=== PATIENT | male | born 1965 | race African-American/Black ===

== ENCOUNTER 2022-06-12 09:39 | Outpatient (CLI) | payer OTHER, SELFPAY ==
[2022-06-12 12:22] LABS: Chloride* 108 mmol/L (96-114)
[2022-06-12 12:23] LABS: Potassium* 4.8 mmol/L (3.6-5.1); Sodium* 141 mmol/L (135-149)
[2022-06-12 12:25] LABS: Alkaline Phosphatase* 89 U/L (40-150); Bilirubin Total* 0.4 mg/dL (0.1-1.5); Blood Urea Nitrogen* 18 mg/dL (7-30); Carbon Dioxide* 28 mmol/L (20-32); Cholesterol* 219 mg/dL (90-199); Creatinine* 1.1 mg/dL (0.5-1.5); Estimated Glomerular Filt Rate 78 ml/min; Total Protein* 7.5 g/dL (6.0-8.3)
[2022-06-12 12:26] LABS: Alanine Aminotransferase* 37 U/L (4-50); Calcium* 9.2 mg/dL (8.4-10.6); Glucose* 113 mg/dL (60-115); HDL Cholesterol* 59 mg/dL (>=40); LDL Cholesterol Calculated 140 mg/dL (<100); Triglycerides* 102 mg/dL (40-149)
[2022-06-12 12:43] LABS: Aspartate Amino Transferase* 38 U/L (12-35)
[2022-06-12 12:56] LABS: PSA Screen* 0.46 ng/mL (0.10-4.00)
== END 2022-06-12 09:40 | disposition home or self-care (01) ==
PROVIDERS: PCP Family Medicine; Visit Provider Family Medicine
DX: Z00.00 Encounter for general adult medical examination without abnormal findings (principal); R03.0 Elevated blood-pressure reading, without diagnosis of hypertension; Z12.5 Encounter for screening for malignant neoplasm of prostate; Z13.6 Encounter for screening for cardiovascular disorders
CPT/HCPCS: 80053; 80061; 84153

== ENCOUNTER 2022-06-28 10:22 | Outpatient (CLI) | payer OTHER, SELFPAY ==
--- NOTE | 2022-06-28 10:15 | CRLHL7_ITS ---
For Patients: As a result of the Century Cures Act, medical imaging exams and procedure reports are released immediately into your electronic medical record. You may view this report before your referring provider. If you have questions, please contact your health care provider. Indication: LIPOMA, R/O DEEP CONNECTION Technique: Grayscale and color Doppler ultrasound of the posterior midline neck soft tissues performed. Comparison: None Findings: There is a circumscribed area of isoechoic echotexture within the posterior neck midline subcutaneous fat measuring 4.3 x 2.2 x 5.5 cm. No distal acoustic shadowing or abnormal vascularity. This appears superficial to the muscular layer. Impression: Subcutaneous lipoma measuring 4.3 x 2.2 x 5.5 cm located superficial to the muscles. Dictated by Trevor Lujan MD @ 06/28/2022 12:20:57 PM (Electronically Signed)
== END 2022-06-28 10:23 | disposition home or self-care (01) ==
PROVIDERS: PCP Family Medicine; Visit Provider Surgery
DX: R22.1 Localized swelling, mass and lump, neck (principal); D17.0 Benign lipomatous neoplasm of skin and subcutaneous tissue of head, face and neck
CPT/HCPCS: 76536

== ENCOUNTER 2022-07-18 06:40 | Day surgery (SDC) | payer OTHER, SELFPAY ==
[2022-07-18] VITALS (14 sets, daily range): BP systolic 110–175; BP diastolic 49–87; PULSE 57–75; RESP 16–18; TEMP 36.1–36.6; O2SAT 93–100; BMI 30.4
[2022-07-18] MEDS: SODIUM CHLORIDE 0.9 % (FLUSH) 10 ML SYRINGE IVF (06:50)
[2022-07-18] MEDS: LACTATED RINGERS 1000 ML 1,000 ML 100 ML IV (06:50)
--- NOTE | 2022-07-18 07:04 | SUR.PREOP ---
Patient provided home covid negative results to RN.
[2022-07-18] MEDS: CEFAZOLIN 2 GM INJ IVP (08:15)
--- NOTE | 2022-07-18 08:46 | W.ANESCHARGE ---
Anesthesia Charges Start Date/Time Anesthesia Start Date: 07/18/22 Anesthesia Start Time: 08:01 Stop Date/Time Anesthesia Stop Date: 07/18/22 Anesthesia Stop Time: 09:43
[2022-07-18] MEDS: BUPIVACAINE 0.25% 30 ML INJECTION (09:07)
--- NOTE | 2022-07-18 09:15 | PM.GSPRC ---
Operative Note Date of procedure: 07/18/22 Pre-op diagnosis: 1. Enlarging recurrent posterior neck mass Post-op diagnosis: Same Type of Procedure: 1. Excision of posterior neck mass. Indications: 56-year-old male was seen in clinic for evaluation of an enlarging posterior neck mass. Patient states that he initially noticed this mass 5 years ago. It was initially smaller and he underwent excision of the mass at the outside hospital. He states that the incision was made but he was not sure what was done. His mass has remained and has been growing in size. It has never gotten infected. On clinical exam in the posterior mid lower neck there was a horizontally oriented mass that was measuring approximately 6 x 4 cm. It was soft to palpation but had limited mobility. There was also vertically oriented surgical scar from patient's previous procedure. Patient underwent an ultrasound that showed a subcutaneous uniform mass measuring 4.3 x 5.5 cm that was thought to be a lipoma. Given patient's clinical history and his physical exam, excision of the posterior neck mass was recommended. The procedure was discussed in detail. The risks associated procedure including infection, bleeding, and mass recurrence were all discussed with the patient, and he agreed to proceed. Procedure Description: After discussing the risks and benefits of the procedure, the patient signed informed consent.? The operative site was marked and the patient was brought to the operating room. Patient was intubated by anesthesia. Patient was then placed prone on the operating table with all pressure points padded. The operative site was then prepped and draped in the usual sterile fashion.? A time-out was then performed. A horizontal elliptical skin incision was made with a scalpel. Dermis was divided with cautery. The dermis was very thick especially at the site of the previously well-healed scar. Subcutaneous tissues were divided with cautery circumferentially. A moderately firm mass was dissected circumferentially from subcutaneous fat. The borders of the mass were not easy to define. The mass was tightly adherent to the muscle fascia. It was shaved off of the muscle fascia with cautery. The mass was then removed. The mass was measuring 9 x 6 cm. It was sent to pathology. Hemostasis was achieved with cautery. Muscle fascia was reapproximated with interrupted Vicryl sutures. A 10 [place] drain was placed through a separate stab incision in the skin on the right side. The drain was placed into the incision cavity. The drain was secured in place with silk suture. Local anesthetic was injected at the surgical site. The incision was then closed in layers with interrupted 2-0 and 3-0 Vicryl sutures. The length of the incision was 11 cm. Steri-Strips and sterile pressure dressings were placed over the incision. ? The patient was then woken and transported to the recovery area in stable condition. ? The patient tolerated the procedure well. Findings: Somewhat firm mass measuring 9 x 6 cm. Anesthesia: GETA Surgeon: Sascha Mayfield MD Estimated blood loss (mL): 10 Additional Specimen Information: 1. Posterior neck mass. Condition: stable Disposition: PACU
--- NOTE | 2022-07-18 09:45 | W.ANESCHARGE ---
Anesthesia Charges Start Date/Time Anesthesia Start Date: 07/18/22 Anesthesia Start Time: 08:01 Stop Date/Time Anesthesia Stop Date: 07/18/22 Anesthesia Stop Time: 09:43
[2022-07-18] MEDS: ONDANSETRON 2 MG/ML inj 4 MG IVP (09:47)
[2022-07-18] MEDS: fentaNYL 100 MCG/2 ML inj 50 MCG IVP (09:51)
[2022-07-18] MEDS: LACTATED RINGERS 1000 ML 1,000 ML 35 ML IV (10:16)
--- NOTE | 2022-07-18 10:28 | SUR.PHASEI ---
patient met discharge criteria per anesthesia
== END 2022-07-18 11:38 | disposition home or self-care (01) ==
PROVIDERS: PCP Family Medicine; Visit Provider Surgery
PROC: (CPT 21552; principal; 2022-07-18 08:00)
DX: D17.0 Benign lipomatous neoplasm of skin and subcutaneous tissue of head, face and neck (principal)
CPT/HCPCS: 21552; 00300; 88304; J0330; J0690; J1100; J2250; J2405; J2704; J2710; J3010; J3490; J7120

== ENCOUNTER 2023-06-27 14:40 | Outpatient (CLI) | payer OTHER, SELFPAY | END 2023-06-27 14:41 | disposition home or self-care (01) | LOC: NFLDREF 14:42 | PROVIDERS: PCP Family Medicine; Visit Provider Family Medicine | DX: I10 Essential (primary) hypertension (principal) | CPT/HCPCS: 80053 ==